=== PATIENT | male | born 1965 | race Caucasian/White ===

== ENCOUNTER 2023-07-21 17:15 | Emergency (ER) | payer SELFPAY | END 2023-07-21 18:35 | disposition home or self-care (01) | LOC: ED 17:15 | DX: L03.116 Cellulitis of left lower limb (principal) ==

== ENCOUNTER 2023-08-14 09:23 | Emergency (ER) | payer SELFPAY ==
[~2023-08-14] VITALS: Ht 182.9 cm; Wt 110.1 kg
[2023-08-14 10:03] LABS: BASO # 0.05 K/mm3 (0.02-0.10); EOS # 0.34 K/mm3 (0.04-0.40); EOS % 3.2 % (0.0-4.0); HEMATOCRIT 45.7 % (42.0-52.0); LYMPH# 2.01 K/mm3 (1.50-4.00); MEAN CELL VOLUME 87 fl (78-100); MEAN CORPUSCULAR HEMOGLOBIN 30 pg (27-31); MEAN CORPUSCULAR HGB CONC 35 g/dL (33-37); MEAN PLATELET VOLUME 10.8 fl (7.4-10.4); MONO # 0.79 K/mm3 (0.20-0.80); NEU # 7.29 K/mm3 (1.40-6.50); PLATELET COUNT 241 K/mm3 (130-400); RED BLOOD COUNT 5.28 M/mm3 (4.20-5.60); RED CELL DISTRIBUTION WIDTH 11.4 % (11.5-14.5); WHITE BLOOD COUNT 10.5 K/mm3 (4.8-10.8)
[2023-08-14 10:06] LABS: ALBUMIN 4.2 g/dL (3.5-5.0)
[2023-08-14 10:08] LABS: CALCIUM 9.3 mg/dL (8.3-10.5)
[2023-08-14 10:09] LABS: TOTAL PROTEIN 7.7 g/dL (6.4-8.3)
[2023-08-14 10:11] LABS: TOTAL BILIRUBIN 0.7 mg/dL (0.2-1.2)
[2023-08-14] MEDS ORDERED: ATORVASTATIN CA10 MG PO (10:29)
[2023-08-14] MEDS ORDERED: HYDROCHLOROTHIA50 M1 PO (10:29)
[2023-08-14] MEDS ORDERED: LISINOPRIL20 MG PO (10:29)
[2023-08-14 11:24] VITALS: BP 120/79
== END 2023-08-14 11:30 | disposition home or self-care (01) ==
LOC: ED 09:23
PROVIDERS: Family Medicine
DX: E11.65 Type 2 diabetes mellitus with hyperglycemia (principal); E86.0 Dehydration; R05.9 Cough, unspecified; E66.9 Obesity, unspecified; F17.200 Nicotine dependence, unspecified, uncomplicated; Z68.32 Body mass index [BMI] 32.0-32.9, adult
CPT/HCPCS: J7120

== ENCOUNTER 2023-10-01 21:08 | Emergency (ER) | payer SELFPAY ==
[~2023-10-01] VITALS: Ht 182.9 cm; Wt 107.5 kg
[~2023-10-01 21:08] MED LIST: ATORVASTATIN CA10 MG PO; HYDROCHLOROTHIA50 M1 PO; LISINOPRIL20 MG PO
[2023-10-01] MEDS ORDERED: GLUCOPHAGE PO (21:39)
[2023-10-01] MEDS ORDERED: BASAGLAR K100 UNIT/1 SQ (21:42)
[2023-10-01 21:52] LABS: BASO # 0.08 K/mm3 (0.02-0.10); EOS # 0.45 K/mm3 (0.04-0.40); EOS % 3.6 % (0.0-4.0); HEMATOCRIT 43.2 % (42.0-52.0); HEMOGLOBIN 15.4 g/dL (13.5-18.0); LYMPH# 3.16 K/mm3 (1.50-4.00); MEAN CELL VOLUME 88 fl (78-100); MEAN CORPUSCULAR HEMOGLOBIN 31 pg (27-31); MEAN CORPUSCULAR HGB CONC 36 g/dL (33-37); MONO # 1.01 K/mm3 (0.20-0.80); NEU # 7.61 K/mm3 (1.40-6.50); PLATELET COUNT 271 K/mm3 (130-400); RED BLOOD COUNT 4.93 M/mm3 (4.20-5.60); RED CELL DISTRIBUTION WIDTH 11.9 % (11.5-14.5); WHITE BLOOD COUNT 12.3 K/mm3 (4.8-10.8)
[2023-10-01 21:54] LABS: ALBUMIN 4.5 g/dL (3.5-5.0); SODIUM 136 mmol/L (136-145)
[2023-10-01 21:55] LABS: CALCIUM 10.2 mg/dL (8.3-10.5)
[2023-10-01 21:56] LABS: TOTAL PROTEIN 7.8 g/dL (6.4-8.3)
[2023-10-01 21:57] LABS: CARBON DIOXIDE 24 mmol/L (22-29); GLUCOSE 134 mg/dL (75-110)
[2023-10-01 21:58] LABS: TOTAL BILIRUBIN 0.5 mg/dL (0.2-1.2)
[2023-10-01 22:02] LABS: AST-SGOT 18 U/L (5-34)
[2023-10-01 22:03] LABS: ALT/SGPT 20 U/L (0-55)
[2023-10-01 22:08] LABS: TROPONIN-I < 0.030 ng/mL (0.00-0.033)
[2023-10-01 23:22] VITALS: BP 123/63
== END 2023-10-01 23:24 | disposition short-term general hospital (02) ==
LOC: ED 21:08
PROVIDERS: Physician Assistant
DX: R42 Dizziness and giddiness (principal); R07.89 Other chest pain; R11.0 Nausea